=== PATIENT | female | born 1990 | race Two or more races ===

== ENCOUNTER 2021-05-15 00:46 | Observation (INO) | payer MEDICAID, OTHER ==
[~2021-05-15] VITALS: Ht 152.4 cm; Wt 85.7 kg
[2021-05-15 01:48] LABS: Urine Bacteria NONE SEEN /hpf (None Seen); Urine Blood Negative /uL (Negative); Urine Specific Gravity 1.012 (1.001-1.035); Urine WBC 7 /hpf (0 - 5)
[2021-05-15 01:52] LABS: Alcohol, Urine < 3.0 mg/dL (0-10); Amphetamine Screen, Urine NEGATIVE (NEGATIVE); Barbiturate Scree,Urine NEGATIVE (NEGATIVE); Benzodiazephine Screen, Urine NEGATIVE (NEGATIVE); Cannabinoid Screen, Urine NEGATIVE (NEGATIVE); Cocaine Screen, Urine NEGATIVE (NEGATIVE); Opiate Scree,Urine NEGATIVE (NEGATIVE); Phencyclidine Screen, Urine NEGATIVE (NEGATIVE)
[2021-05-15] MEDS ORDERED: PREN-96 PO (02:11)
== END 2021-05-15 02:53 | disposition home or self-care (01) ==
LOC: LDRP 00:46
PROVIDERS: ADMIT Specialist; ATTEND Specialist
DX: O42.90 Premature rupture of membranes, unspecified as to length of time between rupture and onset of labor, unspecified weeks of gestation (principal); Z3A.00 Weeks of gestation of pregnancy not specified; Z79.899 Other long term (current) drug therapy
CPT/HCPCS: 59025; 80307; 81001; 84112; G0378; Q0114